=== PATIENT | male | born 1960 | race Hispanic/Latino ===

== ENCOUNTER 2020-10-21 12:36 | Emergency (ER) | payer MEDICAID ==
[~2020-10-21] VITALS: Ht 175.3 cm; Wt 136.1 kg
[~2020-10-21 12:36] MED LIST: ACET1TAB12 PO; AEC81 PO; ATOR10 PO; BUME1TAB6 PO; ESOM20TA PO; FOLI1TAB15 PO; METF-526 PO; METH2.5T6 PO; METO25TA6 PO; PANT40TA54 PO; PRED5TAB PO; SUCR1TAB2 PO
[2020-10-21] MEDS ORDERED: MECLIZINE HCL 25 MG TABLET PO SCH (13:00)
[2020-10-21 13:15] VITALS: BP 146/81
[2020-10-21 13:26] LABS: BASOPHILS % (AUTO) 0.2 % (0.0-5.0); HEMATOCRIT 43.2 % (42-54); LYMPHOCYTES % (AUTO) 27.6 % (21.0-51.0); MEAN CORPUSCULAR HGB CONC 33.1 g/dL (32.0-36.0); MEAN CORPUSCULAR VOLUME 90.8 fL (79-99); MONOCYTES % (AUTO) 6.1 % (3.0-13.0); NEUTROPHILS % (AUTO) 64.9 % (40.0-77.0); PLATELET COUNT (AUTO) 189 K/uL (130-400); RED BLOOD CELL COUNT(AUTO) 4.76 MIL/uL (4.50-6.20); RED CELL DISTRIBUTION WIDTH 12.5 % (11.0-15.5)
[2020-10-21 13:35] VITALS: BP 146/86
[2020-10-21 13:37] LABS: CREATININE 0.9 mg/dL (0.5-1.5); POTASSIUM 4.3 mmol/L (3.5-5.1)
[2020-10-21 13:42] LABS: ALBUMIN 3.7 g/dL (3.5-5.0); BILIRUBIN,TOTAL 0.6 mg/dL (0.2-1.0); TOTAL PROTEIN, SERUM 7.6 g/dL (6.0-8.3)
[2020-10-21] MEDS ORDERED: MECL-160 PO (14:46)
[2020-10-21 14:49] VITALS: BP 146/112
== END 2020-10-21 15:03 | disposition home or self-care (01) ==
LOC: EDH 12:36
DX: E10.9 Type 1 diabetes mellitus without complications (principal); E66.9 Obesity, unspecified; R42 Dizziness and giddiness; R20.0 Anesthesia of skin; I10 Essential (primary) hypertension; I25.10 Atherosclerotic heart disease of native coronary artery without angina pectoris; M19.90 Unspecified osteoarthritis, unspecified site; E78.00 Pure hypercholesterolemia, unspecified; Z79.84 Long term (current) use of oral hypoglycemic drugs; Z79.899 Other long term (current) drug therapy
CPT/HCPCS: 36415; 70450; 71045; 80053; 84484; 85025; 93005

== ENCOUNTER 2022-02-04 08:46 | Emergency (ER) | payer MEDICAID ==
[~2022-02-04] VITALS: Ht 175.3 cm; Wt 127.0 kg
[~2022-02-04 08:46] MED LIST changes: +MECL-160 PO
[2022-02-04 08:58] VITALS: BP 159/84
[2022-02-04] MEDS ORDERED: MAG/ALUM/SIMETH 30 ML UDCUP PO ONE (09:00)
[2022-02-04] MEDS ORDERED: LIDOCAINE HCL 2% VISCOUS 15 ML UDCUP PO ONE (09:00)
[2022-02-04 09:01] LABS: BASOPHILS % (AUTO) 0.3 % (0.0-5.0); EOSINOPHILS % (AUTO) 2.1 % (0.0-8.0); LYMPHOCYTES % (AUTO) 36.3 % (21.0-51.0); MEAN CORPUSCULAR HEMOGLOBIN 30.1 pg (27.0-33.0); MEAN CORPUSCULAR HGB CONC 33.7 g/dL (32.0-36.0); MEAN CORPUSCULAR VOLUME 89.2 fL (79-99); MONOCYTES % (AUTO) 6.6 % (3.0-13.0); NEUTROPHILS % (AUTO) 54.4 % (40.0-77.0); PLATELET COUNT (AUTO) 198 K/uL (130-400); RED BLOOD CELL COUNT(AUTO) 4.82 MIL/uL (4.50-6.20); RED CELL DISTRIBUTION WIDTH 12.5 % (11.0-15.5); WHITE BLOOD COUNT (AUTO) 9.6 K/uL (4.8-10.8)
[2022-02-04] MEDS ORDERED: MAG/ALUM/SIMETH 30 ML UDCUP ONE (09:04)
[2022-02-04] MEDS ORDERED: LIDOCAINE HCL 2% VISCOUS 15 ML UDCUP ONE (09:04)
[2022-02-04 09:10] LABS: CREATININE 0.9 mg/dL (0.5-1.5); POTASSIUM 4.3 mmol/L (3.5-5.1)
[2022-02-04 09:24] LABS: APPEARANCE,URINE CLEAR (CLEAR); BILIRUBIN,URINE NEGATIVE (NEGATIVE); COLOR,URINE LIGHT-YELLOW (YELLOW); GLUCOSE, URINE (UA) NEGATIVE (NEGATIVE); KETONES,URINE 5 mg/dL (NEGATIVE); LEUKOCYTE ESTERASE ,URINE NEGATIVE Leu/uL (NEGATIVE); NITRATE,URINE NEGATIVE (NEGATIVE); PROTEIN,URINE NEGATIVE (NEGATIVE); UROBILINOGEN,URINE 0.2 mg/dL (0.2-1.0)
[2022-02-04 09:30] LABS: MUCUS,URINE RARE LPF (None Seen); RBC,URINE 0-1 /HPF (0-1); SQUAMOUS EPITHELIAL CELL,UR RARE /HPF (0-2); WBC,URINE 0-1 /HPF (0-1)
[2022-02-04 09:32] LABS: ALBUMIN 3.8 g/dL (3.5-5.0); TOTAL PROTEIN, SERUM 7.8 g/dL (6.0-8.3)
[2022-02-04] MEDS ORDERED: KETOROLAC 15MG/ML VIAL (15MG/ML) ONE (09:48)
[2022-02-04] MEDS ORDERED: KETOROLAC 15MG/ML VIAL (15MG/ML) IV ONE ×2 (10:00)
[2022-02-04] MEDS ORDERED: CYCL10TA16 PO (10:25)
[2022-02-04] MEDS ORDERED: MORPHINE 2 MG SYG IVP ONE (10:30)
[2022-02-04] MEDS ORDERED: CYCLOBENZAPRINE HCL 10 MG TABLET PO ONE (10:30)
== END 2022-02-04 10:40 | disposition home or self-care (01) ==
LOC: EDH 08:46
DX: M25.512 Pain in left shoulder (principal); I25.10 Atherosclerotic heart disease of native coronary artery without angina pectoris; E11.9 Type 2 diabetes mellitus without complications; M19.90 Unspecified osteoarthritis, unspecified site; I10 Essential (primary) hypertension; I21.9 Acute myocardial infarction, unspecified; E66.9 Obesity, unspecified; Z95.1 Presence of aortocoronary bypass graft; E78.00 Pure hypercholesterolemia, unspecified; Z68.41 Body mass index [BMI] 40.0-44.9, adult; Z79.84 Long term (current) use of oral hypoglycemic drugs; Z79.899 Other long term (current) drug therapy
CPT/HCPCS: 99285; 96374; 71045; 82550; 83874; 84484; 80053; 85025; 81001; 36415; 93005; J1885

== ENCOUNTER 2022-10-12 12:33 | Observation (INO) | payer MEDICAID ==
[~2022-10-12] VITALS: Ht 175.3 cm; Wt 136.1 kg
[~2022-10-12 12:33] MED LIST changes: +CYCL10TA16 PO
[2022-10-12 12:53] LABS: BASOPHILS % (AUTO) 0.4 % (0.0-5.0); EOSINOPHILS % (AUTO) 2.1 % (0.0-8.0); HEMATOCRIT 44.2 % (42-54); LYMPHOCYTES % (AUTO) 46.1 % (21.0-51.0); MEAN CORPUSCULAR HEMOGLOBIN 29.5 pg (27.0-33.0); MEAN CORPUSCULAR HGB CONC 33.7 g/dL (32.0-36.0); MEAN CORPUSCULAR VOLUME 87.5 fL (79-99); NEUTROPHILS % (AUTO) 41.1 % (40.0-77.0); PLATELET COUNT (AUTO) 211 K/uL (130-400); RED BLOOD CELL COUNT(AUTO) 5.05 MIL/uL (4.50-6.20); RED CELL DISTRIBUTION WIDTH 12.7 % (11.0-15.5); WHITE BLOOD COUNT (AUTO) 7.6 K/uL (4.8-10.8)
[2022-10-12 13:27] LABS: ALBUMIN 3.7 g/dL (3.5-5.0); MAGNESIUM 1.2 mg/dL (1.80-2.40); TOTAL PROTEIN, SERUM 7.6 g/dL (6.0-8.3)
[2022-10-12] MEDS ORDERED: MAGNESIUM 2GM PREMIX 50ML 50 ML IV ONE (13:45)
[2022-10-12 13:55] LABS: APPEARANCE,URINE CLEAR (CLEAR); BILIRUBIN,URINE NEGATIVE (NEGATIVE); COLOR,URINE LIGHT-YELLOW (YELLOW); GLUCOSE, URINE (UA) 30 mg/dL (NEGATIVE); KETONES,URINE NEGATIVE (NEGATIVE); LEUKOCYTE ESTERASE ,URINE NEGATIVE Leu/uL (NEGATIVE); NITRATE,URINE NEGATIVE (NEGATIVE); PH,URINE 5.5 (5.0-8.0); PROTEIN,URINE 20 mg/dL (NEGATIVE); UROBILINOGEN,URINE 0.2 mg/dL (0.2-1.0)
[2022-10-12] MEDS ORDERED: MAGNESIUM 2GM PREMIX 50ML 50 ML IV SCH (14:00)
[2022-10-12 14:11] LABS: MUCUS,URINE RARE LPF (None Seen); RBC,URINE 0-1 /HPF (0-1)
[2022-10-12] MEDS ORDERED: POTASSIUM CHLORIDE 20MEQ/100ML 100 ML IV PRN (15:00)
[2022-10-12] MEDS ORDERED: KCL 20 MEQ ERTAB PO PRN (15:00)
[2022-10-12] MEDS ORDERED: MAGNESIUM 2GM PREMIX 50ML 50 ML IV PRN (15:00)
[2022-10-12] MEDS ORDERED: POTASSIUM CHLORIDE 10% ELIXIR 20 MEQ/15 ML UDCUP PO PRN (15:00)
[2022-10-12] MEDS ORDERED: MORPHINE 2 MG SYG IVP PRN (15:30)
[2022-10-12 15:50] VITALS: BP 157/84
[2022-10-12] MEDS ORDERED: MECLIZINE HCL 12.5 MG TABLET PO PRN (16:00)
[2022-10-12] MEDS ORDERED: FAMOTIDINE 20MG TAB PO SCH (21:00)
[2022-10-12] MEDS ORDERED: METOPROLOL TARTRATE 25 MG TAB PO SCH (21:00)
[2022-10-12] MEDS ORDERED: ATORVASTATIN 20 MG TABLET PO SCH (21:00)
[2022-10-13] MEDS ORDERED: ASPIRIN 81 MG EC TAB PO SCH (09:00)
[2022-10-13] MEDS ORDERED: ENOXAPARIN SODIUM 30 MG/0.3 ML SQ SCH (09:00)
== END 2022-10-12 18:50 | disposition left against medical advice (07) ==
LOC: EDH 12:33 → EDHIP 12:34
PROVIDERS: ADMIT Internal Medicine; ATTEND Internal Medicine
DX: R07.89 Other chest pain (principal); R55 Syncope and collapse; R42 Dizziness and giddiness; R51.9 Headache, unspecified; E83.42 Hypomagnesemia; E10.65 Type 1 diabetes mellitus with hyperglycemia; I10 Essential (primary) hypertension; I25.10 Atherosclerotic heart disease of native coronary artery without angina pectoris; E66.9 Obesity, unspecified; M19.90 Unspecified osteoarthritis, unspecified site; E78.00 Pure hypercholesterolemia, unspecified; Z68.41 Body mass index [BMI] 40.0-44.9, adult; Z79.4 Long term (current) use of insulin; Z95.1 Presence of aortocoronary bypass graft; Z95.5 Presence of coronary angioplasty implant and graft; Z79.899 Other long term (current) drug therapy; Z98.890 Other specified postprocedural states; Z79.84 Long term (current) use of oral hypoglycemic drugs; Z79.82 Long term (current) use of aspirin
CPT/HCPCS: 96365; 96366; 99285; 83735; 84484 ×2; 80053; 85025; 85378; 82948; 81001; 36415; 71045; 70450; 93005 ×2; G0378 ×4; J3475

== ENCOUNTER → 2022-11-14 | Outpatient (CLI) | payer MEDICAID, OTHER ==
[~2022-11-14] VITALS: Ht 22.9 cm; Wt 129.3 kg
== END | disposition home or self-care (01) ==
LOC: DTH 10:57
PROVIDERS: ATTEND Surgery
DX: Z71.3 Dietary counseling and surveillance (principal); E66.01 Morbid (severe) obesity due to excess calories; G47.33 Obstructive sleep apnea (adult) (pediatric); E11.9 Type 2 diabetes mellitus without complications; I10 Essential (primary) hypertension; M19.90 Unspecified osteoarthritis, unspecified site; E78.00 Pure hypercholesterolemia, unspecified; K76.0 Fatty (change of) liver, not elsewhere classified; K21.9 Gastro-esophageal reflux disease without esophagitis; Z68.41 Body mass index [BMI] 40.0-44.9, adult
CPT/HCPCS: 97802

== ENCOUNTER → 2022-12-11 | Outpatient (CLI) | payer OTHER | END | disposition home or self-care (01) | LOC: DTH 11:14 | PROVIDERS: ATTEND Surgery | DX: Z71.3 Dietary counseling and surveillance (principal); E66.01 Morbid (severe) obesity due to excess calories; E11.9 Type 2 diabetes mellitus without complications; I10 Essential (primary) hypertension; M19.91 Primary osteoarthritis, unspecified site; G47.33 Obstructive sleep apnea (adult) (pediatric); E78.00 Pure hypercholesterolemia, unspecified; K76.0 Fatty (change of) liver, not elsewhere classified; K21.9 Gastro-esophageal reflux disease without esophagitis; Z68.41 Body mass index [BMI] 40.0-44.9, adult | CPT/HCPCS: 97803 ==

== ENCOUNTER 2022-12-16 11:28 | Observation (INO) | payer MEDICAID, OTHER ==
[~2022-12-16] VITALS: Ht 175.3 cm; Wt 126.8 kg
[2022-12-16 11:54] LABS: BASOPHILS # (AUTO) 0.04 K/uL (0.00-0.20); BASOPHILS % (AUTO) 0.4 % (0.0-5.0); EOSINOPHILS # (AUTO) 0.13 K/uL (0.00-0.70); EOSINOPHILS % (AUTO) 1.3 % (0.0-8.0); HEMATOCRIT 42.6 % (42-54); IMMATURE GRANULOCYTE ABSOLUTE 0.05 K/uL (0-1); LYMPHOCYTES # (AUTO) 3.6 K/uL (1.0-4.8); LYMPHOCYTES % (AUTO) 36.8 % (21.0-51.0); MEAN CORPUSCULAR VOLUME 88.2 fL (79-99); MONOCYTES # (AUTO) 0.6 K/uL (0.1-1.0); MONOCYTES % (AUTO) 6.2 % (3.0-13.0); NEUTROPHILS # (AUTO) 5.4 K/uL (1.8-7.7); NEUTROPHILS % (AUTO) 54.8 % (40.0-77.0); PLATELET COUNT (AUTO) 210 K/uL (130-400); RED BLOOD CELL COUNT(AUTO) 4.83 MIL/uL (4.50-6.20); RED CELL DISTRIBUTION WIDTH 12.6 % (11.0-15.5); WHITE BLOOD COUNT (AUTO) 9.9 K/uL (4.8-10.8)
[2022-12-16 12:04] LABS: CREATININE 0.9 mg/dL (0.5-1.5); POTASSIUM 4.1 mmol/L (3.5-5.1)
[2022-12-16 12:19] LABS: ALBUMIN 3.6 g/dL (3.5-5.0); BILIRUBIN,TOTAL 0.6 mg/dL (0.2-1.0); TOTAL PROTEIN, SERUM 7.6 g/dL (6.0-8.3)
[2022-12-16] MEDS ORDERED: ENOXAPARIN SODIUM 100 MG/1 ML SQ ONE (13:00)
[2022-12-16] MEDS ORDERED: NITROGLYCERIN 1GM OINT 1 INCH/1GM TD ONE (13:00)
[2022-12-16] MEDS ORDERED: ASPIRIN 325MG TAB PO ONE (13:00)
[2022-12-16 13:08] LABS: APPEARANCE,URINE CLEAR (CLEAR); BILIRUBIN,URINE NEGATIVE (NEGATIVE); COLOR,URINE LIGHT-YELLOW (YELLOW); GLUCOSE, URINE (UA) NEGATIVE (NEGATIVE); KETONES,URINE 5 mg/dL (NEGATIVE); LEUKOCYTE ESTERASE ,URINE NEGATIVE Leu/uL (NEGATIVE); NITRATE,URINE NEGATIVE (NEGATIVE); OCCULT BLOOD,URINE NEGATIVE (NEGATIVE); PROTEIN,URINE NEGATIVE (NEGATIVE); UROBILINOGEN,URINE 0.2 mg/dL (0.2-1.0)
[2022-12-16 13:10] LABS: ADD UA MICROSCOPIC YES
[2022-12-16 13:13] LABS: AMPHET/METH SCREEN,URINE NEGATIVE (NEGATIVE); BARBITURATE SCREEN, URINE NEGATIVE (NEGATIVE); BENZODIAZEPINES SCREEN,URINE NEGATIVE (NEGATIVE); CANNABINOID SCREEN,URINE POSITIVE (NEGATIVE); COCAINE SCREEN,URINE NEGATIVE (NEGATIVE); OPIATE SCREEN,URINE NEGATIVE (NEGATIVE); PHENCYCLIDINE SCREEN,URINE NEGATIVE (NEGATIVE); RBC,URINE 0-1 /HPF (0-1); SQUAMOUS EPITHELIAL CELL,UR RARE /HPF (0-2); WBC,URINE 0-1 /HPF (0-1)
[2022-12-16 13:32] LABS: ALCOHOL, BLOOD < 3 mg/dL (0-10)
[2022-12-16] MEDS ORDERED: ONDANSETRON 4MG INJ IVP PRN (17:00)
[2022-12-16] MEDS ORDERED: ACETAMINOPHEN 500 MG TABLET PO PRN (17:00)
[2022-12-16] MEDS ORDERED: NITROGLYCERIN 0.4 MG SL TAB SL PRN (17:00)
[2022-12-16 17:32] LABS: THYROID STIMULATING HORMONE 1.52 uIU/mL (0.36-3.74)
[2022-12-16 17:38] LABS: HEMOGLOBIN A1C 8.1 % (4.0-6.0)
[2022-12-16 19:30] LABS: INR < 0.93 (0.85-1.15); PROTHROMBIN TIME 10.6 SEC (9.6-11.6)
[2022-12-16 19:31] LABS: PARTIAL THROMBOPLASTIN TIME 27.5 SEC (26.3-35.5)
[2022-12-16] MEDS: INSULIN HUMULIN R 100 UNIT/ML 3ML SQ SCH (20:47)
[2022-12-16] MEDS ORDERED: METOPROLOL TARTRATE 25 MG TAB PO SCH (21:00)
[2022-12-16] MEDS: MORPHINE 2 MG SYG IVP PRN (22:41)
[2022-12-17] VITALS (12 sets, daily range): BP systolic 124–161; BP diastolic 69–98; PULSE 58–87; RESP 16–18; O2SAT 96–99
[2022-12-17] MEDS ORDERED: LOSA100T59 PO (00:13)
[2022-12-17] MEDS ORDERED: ATOR10TA69 PO (00:13)
[2022-12-17] MEDS ORDERED: CYAN250010 PO (00:13)
[2022-12-17] MEDS ORDERED: METO50 PO (00:13)
[2022-12-17] MEDS ORDERED: ETAN50PE3 SQ (00:13)
[2022-12-17] MEDS ORDERED: METF-444 PO (00:13)
[2022-12-17 04:00] LABS: BASOPHILS # (AUTO) 0.03 K/uL (0.00-0.20); BASOPHILS % (AUTO) 0.4 % (0.0-5.0); EOSINOPHILS # (AUTO) 0.18 K/uL (0.00-0.70); EOSINOPHILS % (AUTO) 2.2 % (0.0-8.0); HEMATOCRIT 39.4 % (42-54); IMMATURE GRANULOCYTE ABSOLUTE 0.03 K/uL (0-1); LYMPHOCYTES # (AUTO) 4.1 K/uL (1.0-4.8); LYMPHOCYTES % (AUTO) 50.1 % (21.0-51.0); MEAN CORPUSCULAR HEMOGLOBIN 30.3 pg (27.0-33.0); MEAN CORPUSCULAR HGB CONC 33.5 g/dL (32.0-36.0); MEAN CORPUSCULAR VOLUME 90.4 fL (79-99); MONOCYTES # (AUTO) 0.6 K/uL (0.1-1.0); MONOCYTES % (AUTO) 6.9 % (3.0-13.0); NEUTROPHILS # (AUTO) 3.3 K/uL (1.8-7.7); PLATELET COUNT (AUTO) 182 K/uL (130-400); RED BLOOD CELL COUNT(AUTO) 4.36 MIL/uL (4.50-6.20); RED CELL DISTRIBUTION WIDTH 12.6 % (11.0-15.5); WHITE BLOOD COUNT (AUTO) 8.2 K/uL (4.8-10.8)
[2022-12-17 04:16] LABS: % IRON SATURATION 17.2 % (30-44)
[2022-12-17 04:45] LABS: ALBUMIN 3.3 g/dL (3.5-5.0); BILIRUBIN,TOTAL 0.5 mg/dL (0.2-1.0); CREATININE 0.9 mg/dL (0.5-1.5); MAGNESIUM 1.6 mg/dL (1.80-2.40); POTASSIUM 4.8 mmol/L (3.5-5.1)
[2022-12-17] MEDS: INSULIN HUMULIN R 100 UNIT/ML 3ML SQ SCH ×4 (06:22→20:44)
[2022-12-17] MEDS ORDERED: NON-FORMULARY MEDICATION 1 EACH (Cyanocobalamin (Vitamin B-12) (Vitamin B12) 2,500 MCG) PO SCH (09:00)
[2022-12-17] MEDS: ASPIRIN 81 MG EC TAB PO SCH (09:16)
[2022-12-17] MEDS: CYANOCOBALAMIN (VITAMIN B-12) 1,000 MCG TABLET PO SCH (09:16)
[2022-12-17] MEDS: METOPROLOL TARTRATE 50 MG TAB PO SCH ×2 (09:16→20:11)
[2022-12-17] MEDS: LOSARTAN 100 MG TABLET PO SCH (09:16)
[2022-12-17] MEDS ORDERED: REGADENOSON 0.4 MG/5 ML PF SYG IVP ONE (10:30)
[2022-12-17] MEDS: GABAPENTIN 100 MG CAPSULE PO SCH ×2 (16:35→20:11)
[2022-12-17] MEDS ORDERED: IOHEXOL-350 75 ML VIAL IV ONE (17:13)
[2022-12-17] MEDS: IPRATROPIUM/ALBUTEROL SULFATE 3 ML SOLUTION IH SCH ×2 (18:45→23:55)
[2022-12-17] MEDS: ATORVASTATIN 10 MG TABLET PO SCH (20:11)
[2022-12-17] MEDS: MONTELUKAST SODIUM 10 MG TAB PO SCH (20:12)
[2022-12-17] MEDS: MORPHINE 2 MG SYG IVP PRN (20:19)
[2022-12-18] VITALS (13 sets, daily range): BP systolic 129–155; BP diastolic 62–92; PULSE 57–82; RESP 16–18; O2SAT 97–99
[2022-12-18 05:03] LABS: HEMATOCRIT 38.1 % (42-54); MEAN CORPUSCULAR HEMOGLOBIN 29.6 pg (27.0-33.0); MEAN CORPUSCULAR HGB CONC 32.3 g/dL (32.0-36.0); MEAN CORPUSCULAR VOLUME 91.8 fL (79-99); RED BLOOD CELL COUNT(AUTO) 4.15 MIL/uL (4.50-6.20); RED CELL DISTRIBUTION WIDTH 12.8 % (11.0-15.5); WHITE BLOOD COUNT (AUTO) 7.6 K/uL (4.8-10.8)
[2022-12-18 05:24] LABS: ALBUMIN 3.1 g/dL (3.5-5.0); BILIRUBIN,TOTAL 0.7 mg/dL (0.2-1.0); MAGNESIUM 1.6 mg/dL (1.80-2.40); POTASSIUM 3.6 mmol/L (3.5-5.1); TOTAL PROTEIN, SERUM 6.5 g/dL (6.0-8.3)
[2022-12-18] MEDS: INSULIN HUMULIN R 100 UNIT/ML 3ML SQ SCH ×4 (05:47→21:10)
[2022-12-18] MEDS: MAGNESIUM 2GM PREMIX 50ML 50 ML IV SCH (06:32)
[2022-12-18] MEDS: IPRATROPIUM/ALBUTEROL SULFATE 3 ML SOLUTION IH SCH ×4 (06:48→23:19)
[2022-12-18] MEDS ORDERED: MAGNESIUM 2GM PREMIX 50ML 50 ML IV SCH (08:00)
[2022-12-18] MEDS: CYANOCOBALAMIN (VITAMIN B-12) 1,000 MCG TABLET PO SCH (10:46)
[2022-12-18] MEDS: ASPIRIN 81 MG EC TAB PO SCH (10:46)
[2022-12-18] MEDS: GABAPENTIN 100 MG CAPSULE PO SCH ×3 (10:46→21:03)
[2022-12-18] MEDS: CYCLOBENZAPRINE HCL 10 MG TABLET PO PRN ×2 (10:47→21:13)
[2022-12-18] MEDS: LOSARTAN 100 MG TABLET PO SCH (10:47)
[2022-12-18] MEDS: METOPROLOL TARTRATE 50 MG TAB PO SCH ×2 (10:47→21:03)
[2022-12-18] MEDS ORDERED: KCL 20 MEQ ERTAB PO PRN (11:30)
[2022-12-18] MEDS ORDERED: DEXTROSE 50%-WATER 50 ML DISP.SYRIN IV PRN (11:30)
[2022-12-18] MEDS ORDERED: POTASSIUM CHLORIDE 20MEQ/100ML 100 ML IV PRN ×2 (11:30)
[2022-12-18] MEDS ORDERED: POTASSIUM CHLORIDE 10% ELIXIR 20 MEQ/15 ML UDCUP PO PRN (11:30)
[2022-12-18] MEDS ORDERED: GLUCAGON 1MG KIT 1 MG ML IM PRN (11:30)
[2022-12-18] MEDS ORDERED: MONT-39 PO (17:24)
[2022-12-18] MEDS ORDERED: ALBUHFA IH (17:24)
[2022-12-18] MEDS: BUDESONIDE 0.5 MG/2 ML INH IH SCH (18:34)
[2022-12-18] MEDS: ATORVASTATIN 10 MG TABLET PO SCH (21:03)
[2022-12-18] MEDS: MONTELUKAST SODIUM 10 MG TAB PO SCH (21:03)
[2022-12-19] VITALS (7 sets, daily range): BP systolic 113–136; BP diastolic 74–92; PULSE 60–71; RESP 16–20; O2SAT 98
[2022-12-19 05:41] LABS: HEMATOCRIT 39.8 % (42-54); MEAN CORPUSCULAR HEMOGLOBIN 29.7 pg (27.0-33.0); MEAN CORPUSCULAR HGB CONC 32.9 g/dL (32.0-36.0); MEAN CORPUSCULAR VOLUME 90.2 fL (79-99); RED BLOOD CELL COUNT(AUTO) 4.41 MIL/uL (4.50-6.20); RED CELL DISTRIBUTION WIDTH 12.6 % (11.0-15.5); WHITE BLOOD COUNT (AUTO) 7.5 K/uL (4.8-10.8)
[2022-12-19] MEDS: IPRATROPIUM/ALBUTEROL SULFATE 3 ML SOLUTION IH SCH (06:16)
[2022-12-19] MEDS: BUDESONIDE 0.5 MG/2 ML INH IH SCH (06:16)
[2022-12-19 06:29] LABS: ALBUMIN 3.1 g/dL (3.5-5.0); BILIRUBIN,TOTAL 0.7 mg/dL (0.2-1.0); CREATININE 0.9 mg/dL (0.5-1.5); MAGNESIUM 1.6 mg/dL (1.80-2.40); POTASSIUM 4.4 mmol/L (3.5-5.1); TOTAL PROTEIN, SERUM 6.7 g/dL (6.0-8.3)
[2022-12-19] MEDS: LOSARTAN 100 MG TABLET PO SCH (07:57)
[2022-12-19] MEDS: MAGNESIUM 2GM PREMIX 50ML 50 ML IV SCH (07:57)
[2022-12-19] MEDS: CYANOCOBALAMIN (VITAMIN B-12) 1,000 MCG TABLET PO SCH (07:57)
[2022-12-19] MEDS: ASPIRIN 81 MG EC TAB PO SCH (07:58)
[2022-12-19] MEDS: METOPROLOL TARTRATE 50 MG TAB PO SCH (07:58)
[2022-12-19] MEDS: CYCLOBENZAPRINE HCL 10 MG TABLET PO PRN (08:00)
[2022-12-19] MEDS: INSULIN HUMULIN R 100 UNIT/ML 3ML SQ SCH (08:01)
[2022-12-19] MEDS: GABAPENTIN 100 MG CAPSULE PO SCH (08:02)
== END 2022-12-19 10:03 | disposition home or self-care (01) ==
LOC: EDH 11:28 → EDHIP 11:29 → INTOOBSV 11:29 → 2DH 23:32
PROVIDERS: ADMIT Internal Medicine; ATTEND Internal Medicine
DX: R07.89 Other chest pain (principal); I25.10 Atherosclerotic heart disease of native coronary artery without angina pectoris; E11.9 Type 2 diabetes mellitus without complications; I10 Essential (primary) hypertension; K76.0 Fatty (change of) liver, not elsewhere classified; E78.00 Pure hypercholesterolemia, unspecified; G47.33 Obstructive sleep apnea (adult) (pediatric); M06.9 Rheumatoid arthritis, unspecified; E66.9 Obesity, unspecified; Z79.4 Long term (current) use of insulin; Z79.82 Long term (current) use of aspirin; Z79.899 Other long term (current) drug therapy; Z87.891 Personal history of nicotine dependence; Z95.1 Presence of aortocoronary bypass graft; Z95.5 Presence of coronary angioplasty implant and graft; Z79.84 Long term (current) use of oral hypoglycemic drugs; Z98.890 Other specified postprocedural states; Z68.41 Body mass index [BMI] 40.0-44.9, adult
CPT/HCPCS: 99285; 70450; 71045; 96375 ×2; 80061; 96372 ×4; 83036; 84443; 82550; 83874; 84484 ×3; 80053 ×4; 80305; 83690; 85025 ×2; 85610; 85730; 82948 ×10; 36415 ×4; 93005 ×2; 81001; 93306; 71270; 83540; 83550; 83735 ×3; 82607; 82746; 93356; 94010; 96376; 94664; 78452; 96365; 96366 ×3; 85027 ×2; 93017; 94640 ×9; J1815 ×6; J2270 ×2; J1650; J2405; J2785; Q9967; J3475 ×2; A9500 ×2; G0378; 96374

== ENCOUNTER → 2023-01-08 | Outpatient (CLI) | payer OTHER ==
[~2023-01-08] MED LIST changes: -ACET1TAB12 PO; +ALBUHFA IH; -ATOR10 PO; +ATOR10TA69 PO; -BUME1TAB6 PO; +CYAN250010 PO; -CYCL10TA16 PO; -ESOM20TA PO; +ETAN50PE3 SQ; -FOLI1TAB15 PO; +LOSA100T59 PO; -MECL-160 PO; +METF-444 PO; -METF-526 PO; -METH2.5T6 PO; -METO25TA6 PO; +METO50 PO; +MONT-39 PO; -PANT40TA54 PO; -PRED5TAB PO; -SUCR1TAB2 PO
== END | disposition home or self-care (01) ==
LOC: DTH 11:25
PROVIDERS: ATTEND Surgery
DX: Z71.3 Dietary counseling and surveillance (principal); E66.01 Morbid (severe) obesity due to excess calories; I10 Essential (primary) hypertension; M19.91 Primary osteoarthritis, unspecified site; K21.9 Gastro-esophageal reflux disease without esophagitis; K76.0 Fatty (change of) liver, not elsewhere classified; E11.9 Type 2 diabetes mellitus without complications; G47.33 Obstructive sleep apnea (adult) (pediatric); E78.00 Pure hypercholesterolemia, unspecified
CPT/HCPCS: 97803

== ENCOUNTER → 2023-02-05 | Outpatient (CLI) | payer OTHER | END | disposition home or self-care (01) | LOC: DTH 11:14 | PROVIDERS: ATTEND Surgery | DX: Z71.3 Dietary counseling and surveillance (principal); I10 Essential (primary) hypertension; E66.3 Overweight; G47.33 Obstructive sleep apnea (adult) (pediatric); E66.01 Morbid (severe) obesity due to excess calories; M19.91 Primary osteoarthritis, unspecified site; K21.9 Gastro-esophageal reflux disease without esophagitis; K76.0 Fatty (change of) liver, not elsewhere classified; E11.9 Type 2 diabetes mellitus without complications; E78.00 Pure hypercholesterolemia, unspecified; Z68.41 Body mass index [BMI] 40.0-44.9, adult | CPT/HCPCS: 97803 ==

== ENCOUNTER → 2023-03-05 | Outpatient (CLI) | payer OTHER | END | disposition home or self-care (01) | LOC: DTH 11:07 | PROVIDERS: ATTEND Surgery | DX: Z71.3 Dietary counseling and surveillance (principal); E66.01 Morbid (severe) obesity due to excess calories; E11.9 Type 2 diabetes mellitus without complications; G47.33 Obstructive sleep apnea (adult) (pediatric); I10 Essential (primary) hypertension; M19.90 Unspecified osteoarthritis, unspecified site; E78.00 Pure hypercholesterolemia, unspecified; K76.0 Fatty (change of) liver, not elsewhere classified; K21.9 Gastro-esophageal reflux disease without esophagitis; Z68.41 Body mass index [BMI] 40.0-44.9, adult | CPT/HCPCS: 97803 ==

== ENCOUNTER 2023-04-08 06:42 | Day surgery (SDC) | payer MEDICAID ==
[~2023-04-08] VITALS: Ht 175.3 cm; Wt 124.7 kg
[~2023-04-08 06:42] MED LIST changes: -ALBUHFA IH; +CHOL100046 PO; +CYAN-35 PO; +METO-408 PO; -METO50 PO; -MONT-39 PO; +OMEP20TA2 PO
[2023-04-08 07:15] VITALS: BP 135/91; PULSE 70; RESP 15
[2023-04-08] MEDS ORDERED: LIDOCAINE PF 100MG/5ML (2%) SYRINGE 5ML ONE (07:51)
[2023-04-08] MEDS ORDERED: FENTANYL CITRATE PF 50 MCG/1 ML 2ML VIAL ONE (07:51)
[2023-04-08] MEDS ORDERED: PROPOFOL 10 MG/ML 20ML VIAL IV ONE (07:51)
[2023-04-08] MEDS ORDERED: 0.9%NACL 1000ML 1,000 ML IV ONE (09:19)
== END 2023-04-08 08:35 | disposition home or self-care (01) ==
LOC: ENDO 06:42 → DAH 06:42 → ENDO 08:35
PROVIDERS: ATTEND Surgery
DX: K21.9 Gastro-esophageal reflux disease without esophagitis (principal); E66.01 Morbid (severe) obesity due to excess calories; I10 Essential (primary) hypertension; E11.9 Type 2 diabetes mellitus without complications; E78.00 Pure hypercholesterolemia, unspecified; I25.10 Atherosclerotic heart disease of native coronary artery without angina pectoris; M19.90 Unspecified osteoarthritis, unspecified site; Z79.01 Long term (current) use of anticoagulants; Z79.899 Other long term (current) drug therapy; Z82.49 Family history of ischemic heart disease and other diseases of the circulatory system; Z79.84 Long term (current) use of oral hypoglycemic drugs; Z68.41 Body mass index [BMI] 40.0-44.9, adult; Z79.82 Long term (current) use of aspirin
CPT/HCPCS: 82948; 43235; J3010; J7030 ×2; J3490 ×2; A4620; A4215 ×2; A4223; A7002; A4222; A4221; A4663; A4216; A4606; J2001; J2704

== ENCOUNTER → 2024-08-17 | Outpatient (CLI) | payer MEDICAID ==
[~2024-08-17] MED LIST changes: +ASPI-1197 PO; +ATOR10 PO; +METO50TA18 PO
--- NOTE | 2024-08-17 12:07 | HMCIMG ---
UPPER GI TRACT, WO KUB REASON: GERD w/o esophagitis; Diaphragmatic hernia w/o obstruction or gangrene. COMPARISON: None TECHNIQUE: Biphasic upper GI series study was performed. FINDINGS: There is no obstruction to the antegrade passage of barium from mouth through jejunum. A normal esophageal stripping wave is seen. There is small hiatal hernia. Gastroesophageal reflux is seen to level of mid thoracic esophagus. Stomach is well distended without ulceration or mass lesion. Duodenal bulb and duodenal sweep are unremarkable. IMPRESSION: Small hiatal hernia. Gastroesophageal reflux into the level of mid thoracic esophagus.
== END | disposition home or self-care (01) ==
LOC: RAH 09:55
PROVIDERS: ATTEND Internal Medicine Gastroenterology
DX: K21.9 Gastro-esophageal reflux disease without esophagitis (principal); K44.9 Diaphragmatic hernia without obstruction or gangrene; K31.89 Other diseases of stomach and duodenum; R07.9 Chest pain, unspecified
CPT/HCPCS: 74240

== ENCOUNTER 2024-09-09 08:01 | Emergency (ER) | payer MEDICAID ==
[~2024-09-09] VITALS: Ht 175.3 cm; Wt 118.4 kg
--- NOTE | 2024-09-09 08:28 | EKG ---
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
[2024-09-09 09:09] LABS: BASOPHILS # (AUTO) 0.03 K/uL (0.00-0.20); BASOPHILS % (AUTO) 0.4 % (0.0-5.0); EOSINOPHILS # (AUTO) 0.16 K/uL (0.00-0.70); EOSINOPHILS % (AUTO) 1.9 % (0.0-8.0); HEMATOCRIT 41.4 % (42-54); IMMATURE GRANULOCYTE ABSOLUTE 0.02 K/uL (0-1); LYMPHOCYTES # (AUTO) 2.8 K/uL (1.0-4.8); LYMPHOCYTES % (AUTO) 32.9 % (21.0-51.0); MEAN CORPUSCULAR HGB CONC 33.8 g/dL (32.0-36.0); MEAN CORPUSCULAR VOLUME 88.8 fL (79-99); MONOCYTES # (AUTO) 0.6 K/uL (0.1-1.0); MONOCYTES % (AUTO) 6.9 % (3.0-13.0); NEUTROPHILS # (AUTO) 4.9 K/uL (1.8-7.7); NEUTROPHILS % (AUTO) 57.7 % (40.0-77.0); PLATELET COUNT (AUTO) 180 K/uL (130-400); RED BLOOD CELL COUNT(AUTO) 4.66 MIL/uL (4.50-6.20); RED CELL DISTRIBUTION WIDTH 12.8 % (11.0-15.5); WHITE BLOOD COUNT (AUTO) 8.5 K/uL (4.8-10.8)
[2024-09-09 09:11] LABS: APPEARANCE,URINE CLEAR (CLEAR); BILIRUBIN,URINE NEGATIVE (NEGATIVE); COLOR,URINE COLORLESS (YELLOW); GLUCOSE, URINE (UA) NEGATIVE (NEGATIVE); KETONES,URINE NEGATIVE (NEGATIVE); LEUKOCYTE ESTERASE ,URINE NEGATIVE Leu/uL (NEGATIVE); NITRATE,URINE NEGATIVE (NEGATIVE); OCCULT BLOOD,URINE NEGATIVE (NEGATIVE); PROTEIN,URINE NEGATIVE (NEGATIVE); UROBILINOGEN,URINE 0.2 mg/dL (0.2-1.0)
[2024-09-09 09:13] LABS: ADD UA MICROSCOPIC NO
[2024-09-09 09:14] LABS: CREATININE 0.9 mg/dL (0.5-1.3); POTASSIUM 4.3 mmol/L (3.5-5.1)
[2024-09-09 09:15] VITALS: O2SAT 99
[2024-09-09 09:17] LABS: INR 0.98 (0.85-1.15); PROTHROMBIN TIME 10.4 SEC (9.6-11.6)
[2024-09-09 09:18] LABS: PARTIAL THROMBOPLASTIN TIME 26.4 SEC (26.3-35.5)
[2024-09-09 09:19] LABS: MAGNESIUM 1.5 mg/dL (1.80-2.40)
[2024-09-09 09:30] LABS: B-TYPE NATRIURETIC PEPTIDE 34 pg/mL (0-100)
--- NOTE | 2024-09-09 09:50 | ERN ---
General Chief Complaint: Chest Pain Stated Complaint: CHEST PAIN Time Seen by MD: 08:09 Source: patient History of Present Illness Initial Comments PATIENT IS A 64-YEAR-OLD MALE COMING IN WITH CHEST PAIN. PATIENT STATES THAT HE HAS BEEN EVALUATED ON SEVERAL OCCASIONS FOR THE SAME REASON BUT HIS SOURCE OF PAIN HAS BEEN FOUND. 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 STATES HIS PAIN MILDLY SUBSIDED HE IS HAVING SOME HEADACHE WELL. Allergies: Coded Allergies: No Known Drug Allergies (Unverified Allergy, Unknown, 05/09/16) Home Meds Reported Medications Omeprazole Magnesium (Prilosec Otc) 20 Mg Tablet.dr, 20 MG PO DAILY, TAB 07/02/23 Aspirin (Aspirin) 81 Mg Tab.chew, 81 MG PO DAILY, TAB.CHEW 07/02/23 Losartan Potassium (Losartan Potassium) 100 Mg Tablet, 100 MG PO DAILY, TAB 07/02/23 Metoprolol Tartrate (Metoprolol Tartrate) 50 Mg Tablet, 50 MG PO BID, TAB 07/02/23 Atorvastatin Calcium (LIPITOR) 10 Mg Tab, 10 MG PO HS, TAB 07/02/23 Metformin HCl (Metformin HCl) 500 Mg Tablet, 1000 MG PO BID, TAB 07/02/23 Cyanocobalamin (Vitamin B-12) (Vitamin B-12) 1,000 Mcg Capsule, 1000 MCG PO DAILY, CAP 04/05/23 Cholecalciferol (Vitamin D3) (Vitamin D3) 25 Mcg (1000 Unit) Capsule, 25 MCG PO DAILY, CAP 04/05/23 Omeprazole Magnesium (Prilosec Otc) 20 Mg Tablet.dr, 20 MG PO DAILYBKFST, TAB 04/05/23 Metoprolol Succinate (Metoprolol Succinate) 25 Mg Tab.er.24h, 25 MG PO BID, TAB 04/05/23 Cyanocobalamin (Vitamin B-12) (Vitamin B12) 2,500 Mcg Tablet, 2500 MCG PO DAILY, TAB 12/17/22 Etanercept (Enbrel) Unknown Strength Pen.injctr, 1 UNIT SQ [id number] 12/17/22 Atorvastatin Calcium (Atorvastatin Calcium) 10 Mg Tablet, 1 TAB PO HS 12/17/22 Losartan Potassium (Losartan Potassium) 100 Mg Tablet, 1 TAB PO DAILY 12/17/22 Metformin HCl (Metformin HCl) 500 Mg Tablet, 2 TAB PO BID 12/17/22 Aspirin (ASPIRIN 81 MG ECTAB) 81 Mg Ectab, 81 MG PO DAILY, TAB.EC 05/09/16 Past Medical History Past Medical History: Arthritis, Diabetes-Type II, Hypertension Medical History Other: Obesity Past Surgical History: CABG Surgical History Other: BACK Family History Family History: Negative Social History Social History: Negative, Lives with family ROS Dictation CONSTITUTIONAL: NO CHILLS, NO FEVER, NO WEAKNESS, NO DIAPHORESIS, NO MALAISE. HEAD/FACE: NO SIGNS OF TRAUMA. EENT: NO EYE PAIN, NO BLURRED VISION, NO TEARING, NO DOUBLE VISION, NO EAR PAIN, NO EAR DISCHARGE, NO NOSE PAIN, NO NASAL CONGESTION, NO THROAT PAIN, NO THROAT SWELLING, NO MOUTH PAIN. RESPIRATORY: NO COUGH, NO ORTHOPNEA, NO SOB, NO STRIDOR, NO WHEEZING. CARDIOVASCULAR: CHEST PAIN, NO EDEMA, NO PALPITATIONS, NO SYNCOPE. GASTROINTESTINAL/ABDOMINAL: NO ABDOMINAL PAIN, NO CONSTIPATION, NO DIARRHEA, N O NAUSEA, NO VOMITING. GENITOURINARY: NO ABNORMAL DISCHARGE, NO DYSURIA, NO FREQUENT URINATION, NO HEMATURIA. NO COMPLAINTS OF PAIN IN THE GENITALS. MUSCULOSKELETAL: NO BACK PAIN, NO GOUT, NO JOINT PAIN, NO JOINT SWELLING, NO MUSCLE PAIN, NO MUSCLE STIFFNESS, NO NECK PAIN. INTEGUMENTARY: NO CHANGE IN COLOR, NO CHANGE IN HAIR/NAILS, NO DRYNESS, NO LESION, NO LUMPS, NO RASH. NEUROLOGICAL/PSYCH: NO ANXIETY, NOT DEPRESSED, NO EMOTIONAL PROBLEM, NO HEADACHE, NO NUMBNESS, NO PRE-EXISTING DEFICIT, NO HISTORY OF SEIZURES, NO TREMORS, NO WEAKNESS. HEMATOLOGIC/LYMPHATIC: NOT ANEMIC, NO HISTORY OF BLOOD CLOTS, NO APPARENT BLEEDING, NO BRUISING, GLANDS NOT SWOLLEN. ALL SYSTEMS NEGATIVE, EXCEPT NOTED. Physical Exam Physical Exam Dictation VITAL SIGNS: REVIEWED. GENERAL APPEARANCE: ALERT, ORIENTED X3, NO ACUTE DISTRESS, OBESE. HEAD AND FACE: NON-TRAUMATIC. EYES: PERRL, PINK CONJUNCTIVAS, EYELID NO TRAUMA, ANTERIOR CHAMBER CLEAR. EARS: PINNAS INTACT AND NO SIGNS OF TRAUMA OR ERYTHEMA. EAR CANALS CLEAR AND NO DISCHARGE. TMS NO ERYTHEMA. NOSE: NO DISCHARGE, NO BLEEDING. OROPHARYNX: MOUTH NORMAL, TEETH NO CARIES, TONGUE PINK. PHARYNX CLEAR, NO ERYTHEMA. TONSILS NO EXUDATES, NO ABSCESSES NOTED. MUCOUS MEMBRANE MOIST. NECK: SUPPLE, NON-TENDER, NO THYROMEGALY, NO MASSES, NO JVD, NO BRUITS. BREAST: DEFERRED. CHEST: NO TENDERNESS, NO CREPITUS, NO PARADOXICAL MOVEMENT, NO RETRACTIONS. LUNGS: CLEAR, WELL-VENTILATED, SYMMETRIC, NO RALES, NO WHEEZING, NO RHONCHI, NO STRIDOR, GOOD BREATH SOUNDS BILATERALLY. HEART: REGULAR RATE, REGULAR RHYTHM, NO MURMUR, NO GALLOPS. VASCULAR: NO PERIPHERAL EDEMA. ABDOMEN: SOFT, POSITIVE BOWEL SOUNDS, NONDISTENDED, NO GUARDING, NONTENDER, NO REBOUND, NO MASSES NO HEPATOMEGALY, NO SPLENOMEGALY, NO CARRILLO'S SIGN, NO HERNIAS. RECTAL: DEFERRED. GENITAL: DEFERRED. NEUROLOGICAL: NORMAL SPEECH, GROSS MOTOR FUNCTION INTACT, GROSS SENSORY FUNCTION INTACT. MUSCULOSKELETAL: NECK NONTENDER, FULL RANGE OF MOTION, BACK NONTENDER, FULL RANGE OF MOTION. EXTREMITIES: NONTENDER, FULL RANGE OF MOTION. SKIN: COLOR PINK, DRY, NO TURGOR, NO RASH, NO LACERATIONS, NO ABRASIONS, NO CONTUSIONS. LYMPHATICS: DEFERRED. Results Laboratory and Microbiology Lab and Micro Result Laboratory Tests Test 09/09/24 08:50 09/09/24 08:55 09/09/24 09:49 Urine Color COLORLESS (YELLOW) Urine Appearance CLEAR (CLEAR) Urine pH 6.0 (5.0-8.0) Urine Specific [place] 1.008 (1.001-1.031) Urine Protein NEGATIVE mg/dL (NEGATIVE) Urine Glucose (UA) NEGATIVE mg/dL (NEGATIVE) Urine Ketones NEGATIVE mg/dL (NEGATIVE) Urine Occult Blood NEGATIVE (NEGATIVE) Urine Nitrate NEGATIVE (NEGATIVE) Urine Bilirubin NEGATIVE mg/dL (NEGATIVE) Urine Urobilinogen 0.2 mg/dL (0.2-1.0) Urine Leukocyte Esterase NEGATIVE Erick/uL White Blood Count 8.5 K/uL (4.8-10.8) Red Blood Count 4.66 MIL/uL (4.50-6.20) Hemoglobin 14.0 g/dL (14.0-18.0) Hematocrit 41.4 % (42-54) L Mean Corpuscular Volume 88.8 fL (79-99) Mean Corpuscular Hemoglobin 30.0 pg (27.0-33.0) Mean Corpuscular Hemoglobin Concent 33.8 g/dL (32.0-36.0) Red Cell Distribution Width 12.8 % (11.0-15.5) Platelet Count 180 K/uL (130-400) Mean Platelet Volume 10.9 fL (7.5-10.5) H Immature Granulocyte % (Auto) 0.2 % (0-1) Neutrophils (%) (Auto) 57.7 % (40.0-77.0) Lymphocytes (%) (Auto) 32.9 % (21.0-51.0) Monocytes (%) (Auto) 6.9 % (3.0-13.0) Eosinophils (%) (Auto) 1.9 % (0.0-8.0) Basophils (%) (Auto) 0.4 % (0.0-5.0) Neutrophils # (Auto) 4.9 K/uL (1.8-7.7) Lymphocytes # (Auto) 2.8 K/uL (1.0-4.8) Monocytes # (Auto) 0.6 K/uL (0.1-1.0) Eosinophils # (Auto) 0.16 K/uL (0.00-0.70) Basophils # (Auto) 0.03 K/uL (0.00-0.20) Absolute Immature Granulocyte (auto 0.02 K/uL (0-1) Nucleated Red Blood Cells 0.0 % (0.0-0.19) Prothrombin Time 10.4 SEC (9.6-11.6) Prothromb Time International Ratio 0.98 (0.85-1.15) Activated Partial Thromboplast Time 26.4 SEC (26.3-35.5) Sodium Level 137 mmol/L (136-145) Potassium Level 4.3 mmol/L (3.5-5.1) Chloride Level 99 mmol/L (101-111) L Carbon Dioxide Level 30 mmol/L (21-32) Blood Urea Nitrogen 17 mg/dL (7-18) Creatinine 0.9 mg/dL (0.5-1.3) Glomerular Filtration Rate Calc 96 mL/min (>90) Random Glucose 180 mg/dL (70-105) H Total Calcium 9.4 mg/dL (8.5-10.1) Magnesium Level 1.50 mg/dL (1.80-2.40) L Total Creatine Kinase 57 U/L (21-232) # Troponin I High Sensitivity 12 ng/L (4-75) 12 ng/L (4-75) B-Type Natriuretic Peptide 34 pg/mL (0-100) Triglycerides Level 184 mg/dL (30-200) Cholesterol Level 145 mg/dL (<200) # LDL Cholesterol 86 mg/dL (0-99) HDL Cholesterol 40 mg/dL (29-71) Labs Reviewed?: Yes EKG/XRAY/US/CT/MRI EKG Comment 09/09/2024 TIME 8:26 A.M. VENTRICULAR RATE [address] WAVE ELEVATION OR DEPRESSION MDM MDM: DIFFERENTIAL DIAGNOSIS: GASTRITIS, HIATAL HERNIA, CHEST PAIN, RATIONALE: TESTS CONSIDERED AND ORDERED SECONDARY TO SHARED DECISION MAKING INCLUDE: PREVIOUS OUTSIDE RECORDS REVIEWED: OLD ER VISITS. RISK OF COMPLICATION AND/OR MORBIDITY OR MORTALITY OF PATIENT MANAGEMENT: NONE PATIENT IS A 64-YEAR-OLD MALE COMING IN TO BE EVALUATED FOR CHEST PRESSURE ABDOMINAL DISCOMFORT. HE STATES THAT HE HAS HAD MULTIPLE EXAMS IN THE PAST CTS ENDOSCOPIES STRESS TEST AND NO FINDINGS FOR REASON. I DID ADVISED HIM APPROPRIATE FOLLOW UP WITH PCP ALSO ADVISED HIM OF THE SYMPTOMS PROGRESSED OR CONTINUED THAT WE WOULD ADMIT HIM HE REFUSED ADMISSION STATES HE FEELS MUCH BETTER AFTER HE ATE. LABORATORY WORKUP WITHIN NORMAL LIMITS. I DID ADVISE HIM TO EAT AND TAKE HIS PILLS AFTERWARDS. ED Course Orders Procedure Category Date Status Time Cbc With Differential LAB 09/09/24 Complete 08:11 Prothrombin Time With LAB 09/09/24 Complete INR 08:11 B-Type Natriuretic LAB 09/09/24 Complete Peptide 08:11 Lipid Panel LAB 09/09/24 Complete 08:11 Chest 1vw RAD 09/09/24 Resulted 08:11 12 Lead Ekg Tracing- EKG 09/09/24 Complete Technical 08:11 Magnesium LAB 09/09/24 Complete 08:11 Creatine Kinase, Total LAB 09/09/24 Complete 08:11 Troponin I High LAB 09/09/24 Complete Sensitivity 08:11 Urinalysis Profile LAB 09/09/24 Complete 08:11 Partial LAB 09/09/24 Complete Thromboplastin Time 08:11 Basic Metabolic Panel LAB 09/09/24 Complete 08:11 Troponin I High LAB 09/09/24 Complete Sensitivity 09:38 Lidocaine Hcl 2% PHA 09/09/24 Complete Viscous (Lidocaine Hcl 10:00 Mag/Alum/Simeth 30ml PHA 09/09/24 Complete (Maalox Plus 30ml) 10:00 Pantoprazole 40mg Inj PHA 09/09/24 Complete (Protonix 40mg Inj 10:00 Acetaminophen 500mg PHA 09/09/24 Complete Tab (Tylenol 500mg T 10:00 Current Medications Medications (Trade) Dose Ordered Sig/Jennifer Route PRN Reason Start Time Stop Time Status Last Admin Dose Admin Acetaminophen (TYLenol 500MG TAB) 1,000 mg ONCE ONCE PO 09/09/24 10:00 09/09/24 10:01 DC Al Hydroxide/Mg Hydroxide (MAALox PLUS 30ML) 30 ml ONCE ONCE PO 09/09/24 10:00 09/09/24 10:01 DC Lidocaine HCl (Lidocaine HCl 2% Viscous) 10 ml ONCE ONCE PO 09/09/24 10:00 09/09/24 10:01 DC Pantoprazole Sodium (PROTonix 40MG INJ) 40 mg ONCE ONCE IVP 09/09/24 10:00 09/09/24 10:01 DC Vital Signs Date Time Temp Pulse Resp B/P (MAP) Pulse Ox O2 Delivery O2 Flow Rate FiO2 09/09/24 08:04 97.9 98 18 174/91 97 Room Air 0 DX & DISP Disposition: Discharge Departure Impression: Primary Impression: Gastritis Condition: Stable Additional Instructions: YOU HAVE BEEN REVIEWED IN THE EMERGENCY DEPARTMENT AT [facility] AFTER PRESENTING WITH CHEST PAIN. AFTER CONSIDERING YOUR HISTORY, YOUR RISK FACTORS, YOUR EKG AND YOUR BLOOD TEST TROPONINS, HAVE BEEN FOUND TO BE AT VERY LOW RISK LESS THAN (1 IN 100) OF HAVING A MAJOR ADVERSE CARDIAC EVENT (LIKE HEART ATTACK) IN THE NEAR FUTURE. IN THE " LOW RISK" GROUP, THE RISKS OF DOING FURTHER TESTS AND TREATMENT THE INPATIENT OUTWEIGHS THE BENEFITS. IN MANY PATIENTS IN THE LOW RISK GROUP FOR THE TEST OF ANY SORT OR UNNECESSARY, HOWEVER HE SHOULD DISCUSS THIS FURTHER WITH HIS GENERAL PRACTITIONER WHO WILL UNDERSTAND THE MEDICAL AND PERSONAL BACKGROUNDS BETTER. BECAUSE WE HAVE NEVER DECLARED YOU" NO RISK" WE WOULD SUGGEST. 1 RETURNING FOR MEDICAL REVIEW IF YOU HAVE FURTHER EPISODES OF CHEST PAIN/ARM PAIN OR OTHER CONCERNING SYMPTOMS LIKE DIZZINESS, COLLAPSE, PALPITATIONS OR SHORTNESS OF BREATH. 2. FOLLOWING UP WITH YOUR LOCAL DOCTOR WHO WILL CONSIDER THE NEED FOR FURTHER TESTING AND WILL ALSO ENSURE THAT ANY MODIFIABLE RISK FACTORS YOU MAY HAVE FOR HEART DISEASE ARE OPTIMALLY MANAGED. PATIENT WILL BE DISCHARGED IN STABLE CONDITION AT THE MOMENT DISCHARGE PATIENT STATES , NO CHEST PAIN Referrals: YVONNE NO MD (PCP) THERESE MENDOZA MD Time of Disposition: 10:30 CARLEY UMANZOR MD September 09, 2024 09:50
[2024-09-09] MEDS ORDERED: LIDOCAINE HCL 2% VISCOUS 15 ML UDCUP PO ONE (10:00)
[2024-09-09] MEDS ORDERED: PANTOPrazole 40 MG/VIAL IVP ONE (10:00)
[2024-09-09] MEDS ORDERED: MAG/ALUM/SIMETH 30 ML UDCUP PO ONE (10:00)
[2024-09-09] MEDS ORDERED: acetaMINOPHEN 500 MG TABLET PO ONE (10:00)
[2024-09-09 10:15] VITALS: BP 145/89; PULSE 74; RESP 18; TEMP 98.2
--- NOTE | 2024-09-09 10:21 | HMCIMG ---
CHEST 1VW HISTORY: Chest pain COMPARISON: 12/16/2022 FINDINGS: A frontal projection of the chest was obtained. No acute pulmonary infiltrates is seen. Poststernotomy changes are seen. The heart is enlarged. Degenerative changes of the thoracolumbar spine are present. Prominent interstitial markings are seen. Aortic calcifications are seen. IMPRESSION: 1. No acute pulmonary infiltrate is seen.
== END 2024-09-09 10:53 | disposition home or self-care (01) ==
LOC: EDH 08:01
DX: K29.70 Gastritis, unspecified, without bleeding (principal); E11.9 Type 2 diabetes mellitus without complications; E66.9 Obesity, unspecified; I10 Essential (primary) hypertension; M19.90 Unspecified osteoarthritis, unspecified site; Z79.82 Long term (current) use of aspirin; Z79.84 Long term (current) use of oral hypoglycemic drugs; Z79.899 Other long term (current) drug therapy; Z95.1 Presence of aortocoronary bypass graft
CPT/HCPCS: 36415; 71045; 80048; 80061; 81003; 82550; 83735; 83880; 84484; 85025; 85610; 85730; 93005; 99285

== ENCOUNTER 2024-10-26 07:28 | Day surgery (SDC) | payer MEDICAID ==
[2024-10-21 10:14] LABS: IMMATURE GRANULOCYTE ABSOLUTE 0.04 K/uL (0-1); NUCLEATED RED BLOOD CELLS 0.0 % (0.0-0.19); PLATELET COUNT (AUTO) 206 K/uL (130-400); RED BLOOD CELL COUNT(AUTO) 4.71 MIL/uL (4.50-6.20); RED CELL DISTRIBUTION WIDTH 13.2 % (11.0-15.5); WHITE BLOOD COUNT (AUTO) 8.7 K/uL (4.8-10.8)
[2024-10-21 10:16] VITALS: BP 146/80; PULSE 66; RESP 17; TEMP 96.4
[2024-10-21 10:23] LABS: INR 1.0 (0.85-1.15)
[2024-10-21 10:28] LABS: CREATININE 0.8 mg/dL (0.5-1.3); GLOMERULAR FILTR. RATE CALC 99.0 mL/min (>90); GLUCOSE,RANDOM 187.0 mg/dL (70-105); SODIUM SERUM 138.0 mmol/L (136-145); UREA NITROGEN, BLOOD 18.0 mg/dL (7-18)
--- NOTE | 2024-10-21 12:55 | EKG ---
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
--- NOTE | 2024-10-23 05:03 | HMCIMG ---
EXAM: CR Chest, 1 view CLINICAL HISTORY: Follow-up. COMPARISON: Chest radiograph dated 09/09/2024. FINDINGS: Stable prominent bronchovascular markings could be secondary to mild COPD. The lungs show no infiltrates or other acute findings. No pleural effusion or pneumothorax. The cardiomediastinal silhouette is within normal limits. Status poststernotomy. No acute osseous abnormality. Small left diaphragmatic eventration. IMPRESSION: No acute cardiopulmonary process is evident. Mild COPD. No interval changes. /[place]
[~2024-10-26] VITALS: Ht 175.3 cm; Wt 116.6 kg
[2024-10-26] VITALS (10 sets, daily range): BP systolic 107–186; BP diastolic 57–88; PULSE 63–72; RESP 9–20; TEMP 97.2–97.4
[~2024-10-26 07:28] MED LIST changes: -ASPI-1197 PO; -ATOR10TA69 PO; -CHOL100046 PO; +CHOL500051 PO; -CYAN-35 PO; -ETAN50PE3 SQ; +ETAN50SY SQ; +ISOS30TA92 PO; -METO-408 PO; +NITR0.4T50 SL; -OMEP20TA2 PO; +OMEP40CA21 PO
[2024-10-26] MEDS: 0.9%NACL 1000ML 1,000 ML IV SCH (08:11)
[2024-10-26] MEDS ORDERED: IOHEXOL 350 MG/ML 100ML INFUS..BTL IV ONE (11:18)
[2024-10-26] MEDS ORDERED: LIDOCAINE HCL 400MG/20ML VIAL ONE (11:18)
[2024-10-26] MEDS ORDERED: NITROGLYCERIN 50MG VIAL ONE (11:19)
[2024-10-26] MEDS ORDERED: HEParin-NS 1,000 UNIT/500 ML 1,000 ML IV ONE (11:19)
[2024-10-26] MEDS ORDERED: MIDAZOLAM HCL 1 MG/ML 2ML VIAL ONE (11:38)
[2024-10-26] MEDS ORDERED: DEXTROSE 50%-WATER 50 ML DISP.SYRIN IV PRN (12:30)
[2024-10-26] MEDS ORDERED: GLUCAGON 1MG KIT 1 MG ML IM PRN (12:30)
[2024-10-26] MEDS ORDERED: 0.9%NACL 1000ML 1,000 ML IV SCH (12:30)
--- NOTE | 2024-10-26 12:37 | PRN ---
Left Heart Cath-[place] PROCEDURE: 1. Right common femoral arterial sheath placement. 2. Selective coronary angiogram. 3. Left heart catheterization. 4. Left ventriculogram. 5. Conscious sedation 6. LSCA arteriogram 7. SVG cannulation x 3 with contrast injections and pressure measurements 8. Selective PRINCE cannualtion with contrast injections and pressure measurements INDICATIONS: CP CAD s/p CABG DESCRIPTION OF PROCEDURE: The patient was brought to the catheterization suite and prepped and draped in sterile fashion. An IV was started, if not already in place and both groins were exposed for arterial access. 1% lidocaine was used for local anesthesia and then a micropuncture kit was used to gain access and once free-flowing blood was seen, modified Seldinger technique was utilized to place a 6 Macedonian sheath into the right common femoral artery. Next, preformed JL4 and JR4 Catheters were then used to selectively engage the [place] coronary vessels and multiple hand contrast injections were performed in different views to define the coronary anatomy. A JR4 catheter was also used to selectively engage the three saphenous vein graft with contrast injections and pressure measurements obtained. The JR4 catheter was then used to perform a left subclavian arteriogram. Next using an exchange length J wire the JR4 catheter was removed and then an IM catheter was then used and selectively engaged the left internal mammary artery with pressure measurements and contrast injections performed. Next a six [place]onian angled pigtail was used cross the aortic valve pressure measurements were obtained and then a left ventriculogram was done in the 30 LORD position. Pullback method was then performed. At end of case a Mynx device was used for closure of arteriotomy site and no complications occurred. FINDINGS: The left main artery has 100% occluded at its takeoff. The [place] right coronary artery is subtotaled throughout the course of the RCA in the proximal mid and distal segment with a 100% occlusion noted of the RPL. The RPL and PDA are filling with [id number] collaterals. The PRINCE-LAD is noted to be patent with excellent retrograde filling of LAD and diagonal branch system with filling of the RCA with [id number] collaterals as well. The SVG-OMB graft is noted to be patent with diffuse disease noted an OMB2 of 40-50% with retrograde filling of circumflex system. The SVG-presumable diagonal branch system is occluded at its takeoff of the aorta. The SVG-RCA is occluded at its takeoff off the aorta. The ejection fraction is estimated at 50% There was a gradient of 17 mm of mercury across the aortic valve. LVEDP was slightly elevated. RECOMMENDATIONS: Continue current regimen of medications No heavy lifting 5 lb or greater for five days No driving for 24 hours Continue with guideline directed medical therapy. DANIELLE SANTANA MD Oct 26, 2024 12:37
--- NOTE | 2024-10-26 14:54 | NUR ---
AMBULATION/ URINARY: ASSISTED TO STANDING POSITION WITHOUT COMPLAINING OF DIZZINESS. AMBULATED TO BATHROOM SLOW STEADY GAIT. PT VOIDED QS IN TOILET WITH DIFFICULTY. ASSISTED BACK TO BED.
== END 2024-10-26 16:20 | disposition home or self-care (01) ==
LOC: DAH 07:28
PROVIDERS: ATTEND Internal Medicine Cardiovascular Disease
DX: R07.9 Chest pain, unspecified (principal); R94.39 Abnormal result of other cardiovascular function study; I25.118 Atherosclerotic heart disease of native coronary artery with other forms of angina pectoris; E11.9 Type 2 diabetes mellitus without complications; E78.5 Hyperlipidemia, unspecified; I11.9 Hypertensive heart disease without heart failure; R06.02 Shortness of breath; E66.9 Obesity, unspecified; J44.9 Chronic obstructive pulmonary disease, unspecified; Z68.38 Body mass index [BMI] 38.0-38.9, adult; Z95.1 Presence of aortocoronary bypass graft; Z90.89 Acquired absence of other organs; Z79.82 Long term (current) use of aspirin; Z79.84 Long term (current) use of oral hypoglycemic drugs; Z79.899 Other long term (current) drug therapy
CPT/HCPCS: 80048; 85025; 85610; 85730; 36415; 71045; 93005; 93459; 82948; 99156; 99157 ×2; C1769; C1894 ×2; C1760; J3010; J3490 ×2; J7030; J2250; J1644; Q9967; A4215; A4222; A4221; A4663; A4216; A4606; Q9965 ×2; A4223 ×3; 96360; 96361

== ENCOUNTER 2024-12-20 04:40 | Emergency (ER) | payer MEDICAID ==
[~2024-12-20] VITALS: Ht 175.3 cm; Wt 120.2 kg
[~2024-12-20 04:40] MED LIST changes: -AEC81 PO; +ASPI-1005 PO; -ATOR10 PO; +ATOR20TA65 PO; +CLOP-31 PO; +FURO20TA4 PO; +ISOS120T14 PO; -ISOS30TA92 PO; +Isosorbide Mono 60MG Sr Tab PO; +METO100T14 PO; +METO50 PO; +POTA10CA95 PO; +RANO500T2 PO
[2024-12-20 04:41] VITALS: TEMP 97
[2024-12-20 04:54] LABS: IMMATURE GRANULOCYTE ABSOLUTE 0.03 K/uL (0-1); NUCLEATED RED BLOOD CELLS 0.0 % (0.0-0.19); PLATELET COUNT (AUTO) 144 K/uL (130-400); RED BLOOD CELL COUNT(AUTO) 4.32 MIL/uL (4.50-6.20); RED CELL DISTRIBUTION WIDTH 12.6 % (11.0-15.5); WHITE BLOOD COUNT (AUTO) 7.5 K/uL (4.8-10.8)
--- NOTE | 2024-12-20 05:00 | ERN ---
General Chief Complaint: Chest Pain Stated Complaint: CP, SOB Time Seen by MD: 04:42 Source: patient History of Present Illness Initial Comments PATIENT IS A 64-YEAR-OLD GENTLEMAN COMING IN COMPLAINING OF CHEST PAIN. PATIENT STATES IT HAS A HISTORY OF CABG BACK IN 1999. HE ALSO STATES THAT RECENTLY HE WAS TOLD THAT HE HAD TO BE THE SOURCE OF THE OCCLUDED. ALSO STATES THAT HE HAS BEEN OUT OF HIS NITROGLYCERIN WHICH HAS BEEN HAS BEEN TAKING SUBLINGUAL NITROGLYCERIN TO GO TO ASLEEP. HE STATES HE TAKES FOR EVERY NIGHT. Allergies: Coded Allergies: No Known Drug Allergies (Unverified Allergy, Unknown, 05/09/16) Home Meds Active Scripts Furosemide (Furosemide) 20 Mg Tablet, 1 TAB PO DAILY for 30 Days, #30 TAB 0 Refills Prov:ADDY MONTERROSO JUDSON 11/06/24 Ranolazine (RANEXA) 500 Mg Tab.er.12h, 1000 MG PO BID, #60 TAB Prov:ADDY MONTERROSO WATCH SUPERVISOR 11/06/24 Metoprolol Tartrate (Lopressor 50Mg Tab) 50 Mg Tab, 50 MG PO HS, #60 TAB Prov:ADDY MONTERROSO WATCH SUPERVISOR 11/06/24 Metoprolol Tartrate (Lopressor 50Mg Tab) 50 Mg Tab, 100 MG PO DAILY08, #60 TAB Prov:ADDY MONTERROSO WATCH SUPERVISOR 11/06/24 [Isosorbide [place] 60MG Sr Tab] 60 MG TAB.ER.24H No Conflict Check, 120 MG PO DAILY, #60 0 Refills Prov:ADDY MONTERROSO WATCH SUPERVISOR 11/06/24 Clopidogrel Bisulfate (Plavix) 75 Mg Tablet, 75 MG PO DAILY, #60 TAB Prov:ADDY MONTERROSO WATCH SUPERVISOR 11/06/24 Atorvastatin Calcium (Atorvastatin Calcium) 20 Mg Tablet, 20 MG PO HS, #60 TAB Prov:ADDY MONTERROSO WATCH SUPERVISOR 11/06/24 Aspirin (ASPIRIN 81MG CHEW TAB) 81 Mg Tab.chew, 81 MG PO DAILY, #60 TAB.CHEW Prov:MEME MONTERROSOA Christina WATCH SUPERVISOR 11/06/24 Clopidogrel Bisulfate (Plavix) 75 Mg Tablet, 75 MG PO DAILY for 90 Days, #90 TAB 3 Refills Prov:JONEL MENESES MD 11/06/24 Potassium Chloride (Potassium Chloride) 10 Meq Capsule.er, 10 MEQ PO DAILY for 90 Days, #90 CAP 3 Refills Prov:JONEL MENESES MD 11/06/24 Furosemide (Furosemide) 20 Mg Tablet, 20 MG PO DAILY for 90 Days, #90 TAB 3 Refills Prov:JONEL MENESES MD 11/06/24 Ranolazine (RANEXA) 500 Mg Tab.er.12h, 1000 MG PO BID for 90 Days, #180 TAB 3 Refills Prov:JONEL MENESES MD 11/06/24 Metoprolol Tartrate (Metoprolol Tartrate) 50 Mg Tablet, 50 MG PO DAILYDINNER for 90 Days, #90 TAB 3 Refills Prov:JONEL MENESES MD 11/06/24 Metoprolol Tartrate (Metoprolol Tartrate) 100 Mg Tablet, 100 MG PO DAILY for 90 Days, #90 TAB 3 Refills Prov:JONEL MENESES MD 11/06/24 Isosorbide Mononitrate (Isosorbide Mononitrate ER) 120 Mg Tab.er.24h, 120 MG PO DAILY, #90 TAB 3 Refills Prov:JONEL MENESES MD 11/06/24 Reported Medications Omeprazole (Omeprazole) 40 Mg Capsule.dr, 40 MG PO DAILY, CAP 10/21/24 Etanercept (Enbrel) 50 Mg/Ml (1 Ml) Disp.syrin, 50 MG SQ [id number], DIS.SYR 10/21/24 Nitroglycerin (Nitroglycerin) 0.4 Mg Tab.subl, 0.4 MG SL AD PRN for CHEST PAIN, TAB.SL 10/21/24 Cholecalciferol (Vitamin D3) (Vitamin D3) 125 Mcg (5000 Unit) Capsule, 125 MCG PO DAILY, CAP 10/21/24 Losartan Potassium (Losartan Potassium) 100 Mg Tablet, 100 MG PO DAILY, TAB 07/02/23 Metformin HCl (Metformin HCl) 500 Mg Tablet, 1000 MG PO BID, TAB 07/02/23 Cyanocobalamin (Vitamin B-12) (Vitamin B12) 2,500 Mcg Tablet, 5000 MCG PO DAILY, TAB 12/17/22 Past Medical History Past Medical History: Arthritis, Diabetes-Type II, High Cholesterol, Heart Disease, Hypertension, [place], Other Medical History Other: Obesity Past Surgical History: CABG Surgical History Other: BACK Family History Family History: Negative Social History Social History: Negative, Lives with family Results Laboratory and Microbiology Lab and Micro Result Laboratory Tests Test 12/20/24 04:48 12/20/24 05:36 White Blood Count 7.5 K/uL (4.8-10.8) Red Blood Count 4.32 MIL/uL (4.50-6.20) L Hemoglobin 12.9 g/dL (14.0-18.0) L Hematocrit 38.8 % (42-54) L Mean Corpuscular Volume 89.8 fL (79-99) Mean Corpuscular Hemoglobin 29.9 pg (27.0-33.0) Mean Corpuscular Hemoglobin Concent 33.2 g/dL (32.0-36.0) Red Cell Distribution Width 12.6 % (11.0-15.5) Platelet Count 144 K/uL (130-400) Mean Platelet Volume 10.9 fL (7.5-10.5) H Immature Granulocyte % (Auto) 0.4 % (0-1) Neutrophils (%) (Auto) 50.5 % (40.0-77.0) Lymphocytes (%) (Auto) 38.6 % (21.0-51.0) Monocytes (%) (Auto) 7.3 % (3.0-13.0) Eosinophils (%) (Auto) 2.8 % (0.0-8.0) Basophils (%) (Auto) 0.4 % (0.0-5.0) Neutrophils # (Auto) 3.8 K/uL (1.8-7.7) Lymphocytes # (Auto) 2.9 K/uL (1.0-4.8) Monocytes # (Auto) 0.6 K/uL (0.1-1.0) Eosinophils # (Auto) 0.21 K/uL (0.00-0.70) Basophils # (Auto) 0.03 K/uL (0.00-0.20) Absolute Immature Granulocyte (auto 0.03 K/uL (0-1) Nucleated Red Blood Cells 0.0 % (0.0-0.19) Sodium Level 136 mmol/L (136-145) Potassium Level 4.4 mmol/L (3.5-5.1) Chloride Level 99 mmol/L (101-111) L Carbon Dioxide Level 31 mmol/L (21-32) Blood Urea Nitrogen 20 mg/dL (7-18) H Creatinine 1.0 mg/dL (0.5-1.3) Glomerular Filtration Rate Calc 85 mL/min (>90) Random Glucose 188 mg/dL (70-105) H Total Calcium 8.7 mg/dL (8.5-10.1) Troponin I High Sensitivity 9 ng/L (4-75) 21 ng/L (4-75) B-Type Natriuretic Peptide 103 pg/mL (0-100) H Labs Reviewed?: Yes EKG/XRAY/US/CT/MRI EKG Comment EKG 12/20/2024 TIME 4:40 A.M. VENTRICULAR RATE [address] WAVE ELEVATION OR DEPRESSION VT 182 MDM MDM: DIFFERENTIAL DIAGNOSIS: ANGINA , CHEST PAIN, HISTORY OF CABG, RATIONALE: TESTS CONSIDERED AND ORDERED SECONDARY TO SHARED DECISION MAKING INCLUDE: PREVIOUS OUTSIDE RECORDS REVIEWED: OLD ER VISITS. RISK OF COMPLICATION AND/OR MORBIDITY OR MORTALITY OF PATIENT MANAGEMENT: NONE MEDICATIONS-PER MEDICATION RECONCILIATION NEED FOR HOSPITALIZATION: PATIENT DOES MEET CRITERIA FOR HOSPITALIZATION. NEED FOR EMERGENCY MAJOR/MINOR SURGERY: NO THERE ARE NO SOCIAL CONCERNS WITH THIS PATIENT. PRESCRIPTION DRUG MANAGEMENT PRESCRIPTIONS WILL INCLUDE SYMPTOMATIC CARE PATIENT'S PRIOR EXTERNAL MEDICAL RECORDS FROM OTHER ER VISITS WERE REVIEWED BY ME INDICATED. PRIOR TESTING AND RESULTS FROM PREVIOUS VISITS WERE REVIEWED. PRIOR TESTS WERE TAKEN INTO ACCOUNT WITH MEDICAL DECISION MAKING AND RESOURCE UTILIZATION, INDEPENDENT HISTORIAN/HISTORIANS WERE USED TO OBTAIN COMPLETE MEDICAL HISTORY. I INDEPENDENTLY INTERPRETED THE TEST THAT WERE PERFORMED, RESULTS WERE REVIEWED BY ME AND CONSIDERED FINDINGS ON RADIOLOGY IF ORDERED. MEDICAL MANAGEMENT AND EXAMINATION INTERPRETATION DISCUSSIONS WERE HAD BY ME WITH OTHER QUALIFIED HEALTHCARE PROFESSIONALS INDICATED FOR THE PATIENT'S CARE. PATIENT IS A 64-YEAR-OLD MALE COMING IN COMPLAINING OF CHEST PAIN. PER PATIENT HE DOES NOT WANT TO STAY HE HAS BEEN EVALUATED IN THE PAST BY DIFFERENT CUSTOMER CARE CONSULTANT AND WAS TOLD THAT HE HAD TO CLOGGED CORONARY ARTERIES BUT THEY WERE UNABLE TO OPERATE ON HIM. HE STATES HE WILL FOLLOW UP WITH HIS CUSTOMER CARE CONSULTANT. Despite MY EFFORT TO HAVE HIM STAY AND BE EVALUATED HERE HE REFUSED ADMISSION STATES HE DOES NOT WANT TO STAY HE JUST WANTED SOME SOME LINGUAL NITROGLYCERIN FOR HIS PAIN. I also advised him if he needs immediate emergency evaluation to seek help with the nearest ER or with his PCP/driver starting gate since patient refused to be admitted. ED Course Orders Procedure Category Date Status Time Cbc With Differential LAB 12/20/24 Complete 04:42 Basic Metabolic Panel LAB 12/20/24 Complete 04:42 Troponin I High LAB 12/20/24 Complete Sensitivity 04:42 B-Type Natriuretic LAB 12/20/24 Complete Peptide 04:42 12 Lead Ekg Tracing- EKG 12/20/24 Logged Technical 04:42 Chest 1vw RAD 12/20/24 Resulted 04:42 Nitroglycerin 0.4mg PHA 12/20/24 Complete Sl Tab (Nitrostat) 04:50 Nitroglycerin 0.4mg PHA 12/20/24 Complete Sl Tab (Nitrostat) 05:00 Troponin I High LAB 12/20/24 Complete Sensitivity 05:31 Current Medications Medications (Trade) Dose Ordered Sig/Jennifer Route PRN Reason Start Time Stop Time Status Last Admin Dose Admin Nitroglycerin (Nitrostat) 0.4 mg AD ONCE SL 12/20/24 05:00 12/20/24 05:01 DC 12/20/24 05:02 Nitroglycerin (Nitrostat) 0.4 mg STK-MED ONCE SL 12/20/24 04:50 12/20/24 04:50 DC Vital Signs Date Time Temp Pulse Resp B/P (MAP) Pulse Ox O2 Delivery O2 Flow Rate FiO2 12/20/24 05:38 64 17 132/81 97 Room Air* 0 21 12/20/24 04:48 67 17 154/92 98 Room Air* 0 21 12/20/24 04:41 97.0 79 26 186/108 96 Room Air DX & DISP Disposition: Discharge Departure Impression: Primary Impression: Chest pain Additional Impression: Gastritis Condition: Stable Additional Instructions: You have been reviewed in the emergency department at [facility] after presenting with chest pain. After considering your history, your risk f actors, your EKG and your blood test troponins, have been found to be at very low risk less than (1 in 100) of having a major adverse cardiac event (like heart attack) in the near future. In the " low risk" group, the risks of doing further tests and treatment as the inpatient outweighs the benefits. In many patients in the low risk group for the test of any sort or unnecessary, however he should discuss this further with his general practitioner who will understand the medical and personal backgrounds better. Because we have never declared you" no risk" we would suggest. 1 returning for medical review if you have further episodes of chest pain/arm pain or other concerning symptoms like dizziness, collapse, palpitations or shortness of breath. 2. Following up with your local doctor who will consider the need for further testing and will also ensure that any modifiable risk factors you may have for heart disease are optimally managed. Patient will be discharged in stable condition at the moment discharge patient states , no chest pain Referrals: RUPINDER STRICKLAND (PCP) Time of Disposition: 05:48 CARLEY UMANZOR MD Dec 20, 2024 05:00
[2024-12-20] MEDS: NITROGLYCERIN 0.4 MG SL TAB SL ONE ×2 (05:02)
[2024-12-20 05:03] LABS: CREATININE 1.0 mg/dL (0.5-1.3); GLOMERULAR FILTR. RATE CALC 85.0 mL/min (>90); GLUCOSE,RANDOM 188.0 mg/dL (70-105); SODIUM SERUM 136.0 mmol/L (136-145); UREA NITROGEN, BLOOD 20.0 mg/dL (7-18)
[2024-12-20 05:38] VITALS: BP 132/81; PULSE 64; RESP 17; O2SAT 97
--- NOTE | 2024-12-20 05:42 | HMCIMG ---
EXAM: CR Chest, 1 view CLINICAL HISTORY: Chest pain. COMPARISON: Chest radiograph dated 11/05/2024. FINDINGS: The lungs show no infiltrates or other acute findings. The bilateral CP angles are excluded. No large pleural effusions. Redemonstrated punctate calcifications overlie the left mid zone. No pneumothorax. The cardiomediastinal silhouette is within normal limits. Status poststernotomy. Mild atherosclerotic aorta. No acute osseous abnormality. IMPRESSION: No acute cardiopulmonary process is evident. Compared to the prior study, there is no significant interval change. /Fate
--- NOTE | 2024-12-20 07:31 | EKG ---
[facility] Test Date: 2024-12-20 Test Time: 04:40:05 Pat Name: SAEID AYOUB Department: ED Room: Gender: M Emergency Department Technician: [id number] : 1960 Requested By: CARLEY UMANZOR Order Number: [id number] Reading MD: Melina Don Measurements Intervals [place] Rate: 73 P: 59 WI: 182 QRS: 27 QRSD: 131 T: 86 QT: 398 QTc: 438 Interpretive Statements Sinus rhythm Nonspecific intraventricular conduction delay Nonspecific repol abnormality, lateral leads Compared to ECG 11/05/2024 19:48:03 Early repolarization now present Myocardial infarct finding no longer present Electronically Signed On 12-20-2024 11:10:13 CDT by Melina Don Please click the below link to view image of tracing.
== END 2024-12-20 06:07 | disposition home or self-care (01) ==
LOC: EDH 04:40
DX: R07.89 Other chest pain (principal); K29.70 Gastritis, unspecified, without bleeding; E11.9 Type 2 diabetes mellitus without complications; E66.9 Obesity, unspecified; E78.00 Pure hypercholesterolemia, unspecified; I11.9 Hypertensive heart disease without heart failure; M19.90 Unspecified osteoarthritis, unspecified site; Z79.02 Long term (current) use of antithrombotics/antiplatelets; Z79.82 Long term (current) use of aspirin; Z79.84 Long term (current) use of oral hypoglycemic drugs; Z79.899 Other long term (current) drug therapy; Z95.1 Presence of aortocoronary bypass graft
CPT/HCPCS: 36415; 71045; 80048; 83880; 84484; 85025; 93005; 99285